=== PATIENT | female | born 1985 | race Caucasian/White ===

== ENCOUNTER 2017-10-09 09:59 | Emergency (ER) | payer BC, OTHER ==
[2017-10-09] MEDS ORDERED: Mag-Al Plus 1200 MG/1200 MG/120 MG/30 ML UDCUP ONE (10:14)
[2017-10-09] MEDS ORDERED: Lidocaine Viscous Sol 2% 15 ml UD Cup ONE (10:14)
--- NOTE | 2017-10-09 10:57 | RAD ---
AP VIEW OF THE CHEST: INDICATION: Chest pain. IMPRESSION: No acute cardiopulmonary abnormality. COMMENTS: The exam is compared to a prior dated 06/30/15. The lungs are clear. The cardiomediastinal silhouette is within normal limits with. No acute osseou s abnormality. POS: [facility]
== END 2017-10-09 11:20 | disposition home or self-care (01) ==
LOC: SCSER 09:59
DX: R07.89 Other chest pain (principal); F41.9 Anxiety disorder, unspecified; F32.9 Major depressive disorder, single episode, unspecified; F42.9 Obsessive-compulsive disorder, unspecified
CPT/HCPCS: 71010; 85379; 93005